=== PATIENT | male | born 1955 | race Caucasian/White ===

== ENCOUNTER 2024-10-31 09:15 | Day surgery (SDC) | payer MEDICARE, BC ==
--- NOTE | 2024-10-23 11:03 | ELECTROCARDIOGRAPH REPORT ---
[facility] Test Date: 2024-10-23 Test Time: 11:00:12 Pat Name: BUTCH ROGERS Department: [facility]-PRE-OP Patient ID: [id number] Room: Gender: M Ep Technologist: MADHURI : 1955 Requested By: SCARLETT DU Order Number: [id number] Reading MD: Dr. Tashia Bazan Measurements Intervals Jeff Rate: 52 P: 18 IA: 174 QRS: -32 QRSD: 111 T: 22 QT: 475 QTc: 442 Interpretive Statements Sinus bradycardia Left axis deviation Electronically Signed On 10-24-2024 8:50:[address] Tashia Bazan Please click the below link to view image of tracing.
[2024-10-23 11:20] LABS: BASOPHILS % (AUTO) 0.9 % (0-1); EOSINOPHILS # (AUTO) 0.1 X10'3 (0-0.9); EOSINOPHILS % (AUTO) 4.2 % (0-6); LYMPHOCYTES # (AUTO) 0.9 X10'3 (1.1-4.8); MEAN CORPUSCULAR HGB CONC 34.2 g/dL (33.0-36.5); MEAN CORPUSCULAR VOLUME 87.6 FL (78-98); MEAN PLATELET VOLUME 7.2 FL (7.4-10.4); MONOCYTES # (AUTO) 0.2 X10'3 (0-0.9); MONOCYTES % (AUTO) 7.1 % (2-12); NEUTROPHILS # (AUTO) 1.9 X10'3 (1.8-7.7); NEUTROPHILS % (AUTO) 58.8 % (42-75); PRE OP HEMATOCRIT 42.9 % (42.0-52.0); PRE OP HEMOGLOBIN 14.7 g/dL (14.0-17.9); PRE OP PLATELET COUNT 212 X10'3 (140-440); PRE OP WHITE BLOOD COUNT 3.2 10'3 (4.8-10.8); RED BLOOD COUNT 4.89 X10'6 (4.70-6.10); RED CELL DISTRIBUTION WIDTH 13.2 % (11.5-14.5)
[2024-10-23 11:37] LABS: ALBUMIN 4.2 G/DL (3.4-5.0); ALBUMIN/GLOBULIN RATIO 1.4 (1.1-1.5); ALKALINE PHOSPHATASE 75 IU/L (46-116); BLOOD UREA NITROGEN 18 MG/DL (7-18); BUN/CREATININE RATIO 21.4 (10.0-20.0); CALCIUM 9.1 MG/DL (8.5-10.1); CHLORIDE 105 MMOL/L (99-107); CHOL/HDL RATIO 2.2 (0.00-4.99); CHOLESTEROL 170 MG/DL (0-200); CREATININE 0.84 MG/DL (0.60-1.10); HDL CHOLESTEROL 77 MG/DL (35-60); LDL CHOLESTEROL 77 MG/DL (50-100); PRE OP ALT 54 U/L (30-65); PRE OP ANION GAP 7 (8-16); PRE OP AST 29 U/L (10-37); PRE OP BILIRUB, TOTAL 0.6 MG/DL (0.0-1.0); PRE OP GLUCOSE 102 MG/DL (70-104); PRE OP POTASSIUM 4.4 MMOL/L (3.4-5.1); PRE OP SODIUM 140 MMOL/L (135-145); TOTAL CARBON DIOXIDE 27.6 MMOL/L (24-32); TOTAL PROTEIN 7.2 G/DL (6.4-8.2); TRIGLYCERIDES 52 MG/DL (20-135); eGFR > 90 ML/MIN
[2024-10-23 11:44] LABS: BILIRUBIN,URINE NEGATIVE (Neg); CLARITY,URINE CLEAR (Clear); COLOR,URINE YELLOW (Yellow); GLUCOSE, URINE NEGATIVE (Neg); KETONES,URINE NEGATIVE (Neg); LEUKOCYTE ESTERASE ,URINE NEGATIVE (Neg); NITRITES, URINE NEGATIVE (Neg); OCCULT BLOOD,URINE TRACE-INTACT (Neg); PROTEIN,URINE NEGATIVE (Neg); UROBILINOGEN,URINE 0.2 E.U/dL (0.2-1.0)
[2024-10-23 11:50] LABS: UA COLLECTION TYPE NON-SPECIFIED
[2024-10-23 12:03] LABS: BACTERIA,URINE NONE SEEN /HPF (Neg); MUCUS STRANDS NONE SEEN /LPF (Neg); RBC,URINE 0-2 /HPF (0-2); SQUAMOUS EPITHELIAL CELL,UR NONE SEEN /LPF (FEW); WBC,URINE NONE SEEN /HPF (0-4)
[2024-10-31] VITALS (22 sets, daily range): BP systolic 115–147; BP diastolic 67–98; PULSE 66–97; RESP 13–17; TEMP 97.9–98.5; O2SAT 90–100
[~2024-10-31] VITALS: Ht 180.3 cm; Wt 82.1 kg
[2024-10-31] MEDS: ceFAZolin 2gm in dextrose, iso 50 ML IV ONE (05:30)
[~2024-10-31 09:15] MED LIST: ATOR20TA66 PO
[2024-10-31] MEDS: famotidine 20mg tablet PO ONE (10:02)
[2024-10-31] MEDS: ringers solution, lacted 1,000 ML IV SCH (10:02)
[2024-10-31] MEDS ORDERED: acetaminophen 325mg tablet PO PRN (10:50)
[2024-10-31] MEDS ORDERED: ondansetron/PF 4mg/2ml inj IV PRN ×2 (10:50→12:55)
[2024-10-31] MEDS ORDERED: BUPIVAcaine 0.25% w/Epi /PF 30ml vial ONE (10:55)
[2024-10-31] MEDS ORDERED: BUPIVACAINE liposomal/PF 13.3 MG/ML 10mL vial IM ONE (10:56)
[2024-10-31] MEDS ORDERED: midazolam 1 mg/ML 2ml injection ONE (11:18)
[2024-10-31] MEDS ORDERED: propofol inj 20 ML IV ONE (11:19)
[2024-10-31] MEDS ORDERED: fentaNYL /PF 50mcg/ml 5ml ampule ONE (11:19)
[2024-10-31] MEDS ORDERED: rocuronium 10mg/ml inj IV ONE (11:20)
[2024-10-31] MEDS ORDERED: dexamethasone sod phosphate 4mg/ml inj. ONE (11:23)
[2024-10-31] MEDS ORDERED: ondansetron/PF 4mg/2ml inj ONE (11:23)
[2024-10-31] MEDS ORDERED: sevoflurane 250ml liquid IH ONE (11:52)
[2024-10-31] MEDS: BUPIVAcaine 0.25% w/Epi /PF 30ml vial IJ ONE (12:15)
[2024-10-31] MEDS ORDERED: HYDROmorphone/PF 0.2 MG/ML SYRINGE IV PRN ×2 (12:55)
[2024-10-31] MEDS ORDERED: labetalol 20mg/4ml (5mg/ml) syringe IV PRN (12:55)
[2024-10-31] MEDS ORDERED: morphine 2 MG/ML inj. syringe IV PRN (12:55)
[2024-10-31] MEDS ORDERED: ringers solution, lacted 1,000 ML IV SCH (12:55)
[2024-10-31] MEDS ORDERED: hydrALAZINE 20mg/ml inj. IV PRN (12:55)
[2024-10-31] MEDS ORDERED: acetaminophen 1,000mg/100ml IV 100 ML IV ONE (14:46)
[2024-10-31] MEDS ORDERED: neostigmine methylsulfate 1 MG/ML 10ml vial ONE (15:05)
[2024-10-31] MEDS ORDERED: glycopyrrolate 0.2mg/ml inj ONE (15:05)
[2024-10-31] MEDS: morphine 4 MG/ML inj SYRINge IV PRN (15:17)
--- NOTE | 2024-10-31 15:49 | OPERATIVE REPORT ---
Operative Report Providers to ~ Date of Procedure: October 31, 2024 Pre-Operative Diagnosis: prostate cancer Post-Operative Diagnosis SAME as PRE-Op Procedure Performed robotic assisted laparoscopic radical prostatectomy Surgeon: Cristin Du MD Implant Polisher MD Sharita Irvin NP Anesthesiologist: Neftali Martinez Type of Anesthesia: General Findings: prostate approximately 50 grams in size mild left lower quadrant adhesions Complications none Prosthetics\Implants used: 20Fr maharaj catheter 15Fr ROMMEL drain in LLQ Estimated Blood Loss: 200cc Specimen Removed: prostate with vas deferens and seminal vesicles Description of Procedure: Informed consent was obtained. Patient was taken to the operating room and general anesthesia was administered. The patient was placed supine. The abdomen and genitalia were prepped and draped in usual fashion. A 16Fr maharaj catheter was placed into the bladder with drainage of clear yellow urine. A transverse midline incision was made superior to the umbilicus. Dissection was carried down through the subcutaneous tissue and fascia. The peritoneum was carefully incised. A Meli trocar was placed into the abdomen. The robotic camera was placed. Three 8mm robotic trocars were placed for triangulation to the prostate. A 12mm yard assistant trocar was placed in the right lower quadrant. The Da Criselda XI robot was docked in typical fashion. There were mild adhesions in the left lower quadrant which were taken down using scissors. The bowel was retracted out of the pelvis. The peritoneum was incised posterior to the prostate. The bilateral vas deferens and seminal vesicles were identifed and dissected free. The vas deferens were transected bilaterally. An incision was made in Denonvillier's fascia and the plane between the prostate and the rectum was developed anteriorly towards the apex of the prostate. The space of Retzius was developed by incising lateral to the medial umbilical ligaments and dissecting down towards the pubic symphysis bilaterally. Then, the urachas and medial umbilical ligaments were transected to completely drop the bladder. The prostate was defatted anteriorly. The endopelvic fascia was incised bilaterally. The dorsal venous complex was then ligated with two figure of 8 sutures. The maharaj catheter was seated against the bladder neck to delineate the bladder neck, and the anterior bladder neck was divided. The maharaj catheter was then brought into the anterior operative field for traction on the prostate. The posterior bladder neck was then divided. The vas and seminal vesicles were identified and brought in the anterior operative field. The Harmonic ligasure device was used to divide the prostatic pedicles bilaterally towards the apex of the prostate. The dorsal venous complex was divided. The urethra was transected, preserving an adequate urethral stump. He mostasis was ensured throughout the pelvis. Surgicel was placed in the pelvis overlying the rectum. The vesicourethral anastomosis was then carried out in a running fashion using 3-0 V-Loc suture. After completing the anastomosis, a new 20Fr maharaj catheter was placed into the bladder. The bladder was then filled to 200cc, and the anastomosis was noted to be water tight. Fibrillar was then packed into the pelvis for additional hemostasis. A 15Fr ROMMEL drain was placed through the left lower quadrant incision. The specimen was placed in an Endocatch bag for retrieval. The robot was undocked. The specimen was removed through the midline incision. The midline fascia was closed using a 2-0 Vicryl suture. The skin incisions were closed using 4-0 Monocryl. The ROMMEL drain was secured to the skin using a 2-0 Silk suture. Local anesthestic was injected at the skin incisions. Dermabond was placed over the incisions. The patient tolerated the procedure without any immediate complications. He was transferred to the recovery room in stable position. Plan: ROMMEL drain will be removed prior to discharge. Maharaj catheter will remain in place for 7-10 days. Counts repoted as correct: Yes CRISTIN DU MD October 31, 2024 15:49
[2024-10-31] MEDS: ketorolac trometh 15mg/ml vial 15 MG/ML ML IV ONE (15:53)
[2024-10-31] MEDS: ceFAZolin/D5W- 1GM premix 50 ML IV SCH (20:01)
[2024-10-31] MEDS: docusate sod 250mg capsule PO SCH (20:09)
[2024-10-31] MEDS: polyethylene glycol 3350 17gm powd pack PO SCH (21:00)
[2024-11-01] MEDS: HYDROcodone/acetaminophen 5mg/325mg tablet PO PRN (04:03)
[2024-11-01 06:00] VITALS: BP 113/65; PULSE 70; RESP 14; TEMP 98.9; O2SAT 96
[2024-11-01 07:30] LABS: BASOPHILS % (AUTO) 0.4 % (0-1); EOSINOPHILS % (AUTO) 0.3 % (0-6); HEMOGLOBIN 13.2 g/dl (14.0-17.9); LYMPHOCYTES # (AUTO) 1.1 X10'3 (1.1-4.8); MEAN CORPUSCULAR HEMOGLOBIN 29.9 PG (27.0-31.0); MEAN PLATELET VOLUME 7.1 FL (7.4-10.4); MONOCYTES # (AUTO) 0.7 X10'3 (0-0.9); MONOCYTES % (AUTO) 10.7 % (2-12); NEUTROPHILS # (AUTO) 4.4 X10'3 (1.8-7.7); NEUTROPHILS % (AUTO) 71.6 % (42-75); PLATELET COUNT 196 X10'3 (140-440); RED BLOOD COUNT 4.43 X10'6 (4.70-6.10); RED CELL DISTRIBUTION WIDTH 13.2 % (11.5-14.5); WHITE BLOOD COUNT 6.2 X10'3 (4.5-11.0)
[2024-11-01 07:37] LABS: ALBUMIN 3.4 G/DL (3.4-5.0); ANION GAP 5 (8-16); BLOOD UREA NITROGEN 14 MG/DL (7-18); CALCIUM 8.5 MG/DL (8.5-10.1); CHLORIDE 103 MMOL/L (99-107); CREATININE 1.08 MG/DL (0.60-1.10); GLUCOSE 110 MG/DL (70-104); POTASSIUM 4.3 MMOL/L (3.5-5.1); SODIUM 137 MMOL/L (135-145); TOTAL CARBON DIOXIDE 29.4 MMOL/L (24-32); eCRCL 69 ML/MIN; eGFR 68 ML/MIN
[2024-11-01] MEDS: HYDROcodone/acetaminophen 10/325mg tab PO PRN (08:30)
[2024-11-01 10:00] VITALS: BP 108/67; PULSE 60; RESP 17; TEMP 98; O2SAT 98
--- NOTE | 2024-11-01 16:01 | DISCHARGE SUMMARY ---
Discharge Summary Providers to CC ~ Discharge Summary Assessment 68yo M with prostate cancer s/p RALP on 10/31/24 Admission Diagnosis: prostate cancer Hospital Course DATE OF ADMISSION: 10/31/24 DATE OF DISCHARGE: 11/01/24 Discharge Diagnosis\Comment: prostate cancer Operations\Procedures: RALP Consultants: none Complications: none Condition on DC: Stable Discharge Summary: Patient admitted postoperatively after RALP for observation. Pain was controlled with PO and IV medications. Diet was slowly advanced. ROMMEL drain output was minimal, and ROMMEL was removed on POD 1. Mild hematuria improved overnight. He ambulated prior to discharge. He was discharged home with maharaj catheter in place. *Problems/Diagnosis: (1) Prostate cancer Total Time Spent on D/C: Up to 30 Minutes SCARLETT DU MD November 01, 2024 16:01
[2024-11-01 16:14] VITALS: RESP 18; O2SAT 98
[2024-11-01 17:26] VITALS: RESP 18
== END 2024-11-01 17:30 | disposition home or self-care (01) ==
LOC: PAS 09:15 → SUR 3N 17:28 → PAS 11-01 17:30
PROVIDERS: ATTEND Student in an Organized Health Care Education/Training Program
DX: C61 Malignant neoplasm of prostate (principal); N40.1 Benign prostatic hyperplasia with lower urinary tract symptoms; R35.0 Frequency of micturition; Z79.899 Other long term (current) drug therapy; Z79.01 Long term (current) use of anticoagulants
CPT/HCPCS: 36415; 55866; 80048; 80053; 80061; 81001; 82948; 85025; 85610; 85730; 86885; 86900; 86901; 87088; 93005; A4215; A4314; A4338; A4357; A4358; A4618; A5200; A6402; J0131; J0665; J0666; J0690; J1100; J1885; J2250; J2270; J2405; J2704; J2710; J3010; J3490; J7030; J7120; Z7506; Z7508; Z7512; Z7610; A6449; G0378

== ENCOUNTER 2025-01-30 12:16 | Outpatient (CLI) | payer MEDICARE, BC ==
[2025-01-30 13:00] LABS: CHOL/HDL RATIO 3.4 (0.00-4.99); LDL CHOLESTEROL 137 MG/DL (50-100)
== END 2025-01-30 23:59 | disposition home or self-care (01) ==
LOC: RAD 12:16
PROVIDERS: ATTEND Student in an Organized Health Care Education/Training Program
DX: E78.2 Mixed hyperlipidemia (principal)
CPT/HCPCS: 36415; 80061